=== PATIENT | male | born 2000 | race Caucasian/White ===

== ENCOUNTER → 2019-07-21 10:55 | Outpatient (BNVA) | payer SELFPAY | PROVIDERS: Family Provider Nurse Practitioner Family; PCP Nurse Practitioner Family; Visit Provider Nurse Practitioner Family | DX: S46.919A Strain of unspecified muscle, fascia and tendon at shoulder and upper arm level, unspecified arm, initial encounter (principal) | CPT/HCPCS: 73030 ==

== ENCOUNTER → 2019-07-28 13:18 | Outpatient (BNVA) | payer SELFPAY | PROVIDERS: Family Provider Nurse Practitioner Family; PCP Nurse Practitioner Family; Visit Provider Registered Nurse | DX: N50.89 Other specified disorders of the male genital organs (principal); R68.89 Other general symptoms and signs; N48.9 Disorder of penis, unspecified | CPT/HCPCS: 81000 ==